=== PATIENT | female | born 1965 | race Caucasian/White ===

== ENCOUNTER 2016-08-19 10:16 | Day surgery (SDC) | payer OTHER ==
[2016-08-18 14:45] VITALS: BMI 27.9
[2016-08-19] MEDS ORDERED: BUPIVACAINE HCL/EPINEPHRINE/PF 30 ML VIAL IJ ONE (12:06)
[2016-08-19] MEDS ORDERED: PROPOFOL 20 ML ONE ×2 (13:37)
[2016-08-19] MEDS ORDERED: MIDAZOLAM HCL 2 MG/2 ML SINGLE DOSE VIAL ONE (14:01)
[2016-08-19] MEDS ORDERED: ceFAZolin SODIUM 1 GM VIAL ONE (14:26)
[2016-08-19] MEDS ORDERED: CLINDAMYCIN PHOSPHATE 600 MG/4 ML VIAL ONE (14:29)
[2016-08-19] MEDS ORDERED: KETOROLAC TROMETHAMINE 30 MG/1 ML VIAL ONE (14:31)
[2016-08-19] MEDS ORDERED: DEXAMETHASONE SOD PHOSPHATE 4 MG/1 ML VIAL ONE (14:31)
[2016-08-19] MEDS ORDERED: ONDANSETRON 4 MG/2 ML VIAL ONE ×2 (14:31→15:48)
[2016-08-19] MEDS ORDERED: BUPIVACAINE 0.25% /EPI 1:200,000 10 ML VIAL INF ONE (14:47)
--- NOTE | 2016-08-19 15:06 | OP ---
Operative Note - Note: Operative Date: 08/19/16 Pre-Operative Diagnosis: LEft knee medial/lateral meniscus tears Operation: LKA, chondroplasty and synovectomy Findings: Synovitis, lateral patella chondromalacia. NO evidence of MMT or LMT> Post-Operative Diagnosis: Other Anesthesia: Local Operative Report Dictated: Yes
--- NOTE | 2016-08-19 15:07 | DS ---
Physical Examination Vital Signs: Vital Signs Temperature 98.1 F 08/19/16 12:33 Pulse Rate 58 L 08/19/16 12:33 Respiratory Rate 20 08/19/16 12:33 Blood Pressure 108/67 08/19/16 12:33 O2 Sat by Pulse Oximetry (%) 99 08/19/16 12:35 Discharge Summary Reason For Visit: MEDIAL MENISCAL TEAR, LEFT KNEE Condition: Good - Instructions Diet, Activity, Other Instructions: Post Operative Instructions: Knee Arthroscopy Dr Handy Thomas 1. Pain following an arthroscopy is variable. Some patients will have more pain than others. You have been provided with a prescription for medication that contains a narcotic. You are not allowed to drive while on this medication. You should NOT take Tylenol (Acetaminophen) when taking the pain medication ( it will result in an overdose). Feel free to take medications such as Ibuprofen or Naprosyn in addition to the pain medicine if you do not have any problems with the NSAID class of medications. 2. You are allowed to remove the bandages and shower in 24 hours unless directed otherwise. You are not allowed to bathe or go swimming until the sutures are removed. Put band-aids on the sutures after your shower and do not put any creams or lotions over the incisions. 3. You are allowed to put all your weight on the leg and bend your knee, unless directed otherwise. 4. Apply ice to the knee for 15 min every hour or so. You may continue this for as many days as you like. 5. Please call the office to schedule a visit to have your sutures removed. 6. If for any reason you believe you may have an infection or are concerned, please feel free to call me. I can be reached through our office number 24 hours a day. 7. Please call our office with any questions; we will review the surgical findings during your post operative visit. Disposition: HOME - Home Medications Comprehensive Discharge Medication List: Ambulatory Orders Oxycodone HCl 30 mg PO QID 11/11/15 Albuterol 0.083% Nebulizer Kim [Ventolin 0.083%] 1 neb NEB Q4H PRN 08/19/16 Budesonide/Formeterol Fumarate [SYMBICORT 160/4.5mcg -] 1 inh PO BID 08/19/16
[2016-08-19] MEDS ORDERED: oxyCODONE HCL 5 MG TABLET PO PRN (16:21)
[2016-08-19] MEDS ORDERED: ONDANSETRON 4 MG/2 ML VIAL IVPUSH PRN (16:21)
[2016-08-19] MEDS ORDERED: LACTATED RINGERS SOLUTION 1,000 ML IV SCH (16:30)
[2016-08-19 17:43] VITALS: PULSE 62; TEMP 98
[2016-08-19 17:50] VITALS: BP 110/62
--- NOTE | 2016-08-23 14:33 | PATH ---
Surgical Pathology Report Patient Name: JODI [facility]. Rec. #: [id number] /Age/Gender: 1965 (Age: 51) / F Account: [id number] Location: [facility] Taken: 08/19/2016 Received: 08/19/2016 Reported: 08/23/2016 Physicians: Handy Thomas M.D. Specimen(s) Received LEFT KNEE SHAVINGS Clinical History Medial meniscal tear left knee Final Diagnosis LEFT KNEE, ARTHROSCOPIC SHAVINGS: SYNOVIUM WITH MILD CHRONIC INFLAMMATION, AND SCANT FIBROCARTILAGE WITH MYXOID DEGENERATIVE CHANGES. Electronically Signed Nabeel Montalvo M.D. Gross Description Received in formalin, labeled "left knee shavings," is a 2.5 x 2.5 x 0.3 cm. aggregate of brooks-yellow soft tissue fragments. A direct customer service representative portion is submitted in one cassette. /08/22/201608/22/2016
== END 2016-08-19 17:53 | disposition home or self-care (01) ==
LOC: FASU 10:16
PROVIDERS: ATTEND Orthopaedic Surgery
PROC: 0SBD4ZZ Excision of Left Knee Joint, Percutaneous Endoscopic Approach (ICD-10-PCS; principal; 2016-08-19 12:00)
DX: S83.012A Lateral subluxation of left patella, initial encounter (principal); M17.12 Unilateral primary osteoarthritis, left knee; M65.9 Synovitis and tenosynovitis, unspecified; X58.XXXA Exposure to other specified factors, initial encounter; Y93.9 Activity, unspecified; Y92.9 Unspecified place or not applicable
CPT/HCPCS: 84703; 88304-TC

== ENCOUNTER 2018-01-14 01:34 | Emergency (ER) | payer OTHER ==
[2018-01-14 01:57] VITALS: BP 126/75; PULSE 66; TEMP 97.6; BMI 27.4
[2018-01-14] MEDS ORDERED: SODIUM CHLORIDE 1,000 ML IV STA (02:24)
[2018-01-14] MEDS ORDERED: KETOROLAC TROMETHAMINE 30 MG/1 ML VIAL IVPUSH ONE (02:24)
[2018-01-14] MEDS ORDERED: METOCLOPRAMIDE HCL INJECTION 10 MG/2 ML VIAL IVPUSH ONE (02:24)
--- NOTE | 2018-01-14 02:28 | PDOC ---
History of Present Illness - General Chief Complaint: Pain Stated Complaint: PAIN Time Seen by Provider: 01/14/18 02:07 History Source: Patient Exam Limitations: Language Barrier (Sharyn Wooten) - History of Present Illness Initial Comments: 01/14/18 02:28 HISTORY OF PRESENT ILLNESS: 52-year-old woman past medical history of asthma, depression, unspecified thyroid disease (denies prescribed medications) who presents emergency Department with 3 days of headaches, myalgias and arthralgia. Patient is unable to describe her headache for repeat reports "my bones hurt." Patient denies any fevers, chills, sore throat, dizziness, weakness , chest pain, shortness of breath. No recent travel or sick contacts. PAST MEDICAL HISTORY: see hpi SURGICAL HISTORY: Denies ALLERGIES: PCN REVIEW OF SYSTEMS General/Constitutional: Denies fever or chills. Denies weakness, weight change. HEENT: Denies change in vision. Denies ear pain or discharge. Denies sore throat. Cardiovascular: Denies chest pain or shortness of breath. Respiratory: Denies cough, wheezing, or hemoptysis. Gastrointestinal: Denies nausea, vomiting, diarrhea or constipation. Denies rectal bleeding. Genitourinary: Denies dysuria, frequency, or change in urination. Musculoskeletal: Endorses joint and muscle pain. Denies neck or back pain. Skin and breasts: Denies rash or easy bruising. Neurologic: Endorses headache. Denies vertigo, loss of consciousness, or loss of sensation. Psychiatric: Denies depression or anxiety. Endocrine: Denies increased thirst. Denies abnormal weight change. Hematologic/Lymphatic: Denies anemia, easy bleeding, or history of blood clots. Allergic/Immunologic: Denies hives or skin allergy. Denies latex allergy. PHYSICAL EXAM General Appearance: Well-appearing, appropriately dressed. No apparent distress , no intoxication. HEENT: EOMI, PERRLA, normal voice, TMs normal. No conjunctival pallor. No photophobia, scleral icterus. Oropharynx mildly erythematous. No lesions or exudates present. Cobblestoning noted in the posterior oropharynx. Neck: Supple. Trachea midline. No tenderness, rigidity, carotid bruit, stridor , lymphadenopathy, or thyromegaly. Respiratory/Chest: Lungs CTAB. No shortness of breath, chest tenderness, respiratory distress, accessory muscle use. No crackles, rales, rhonchi, stridor , wheezing, dullness Cardiovascular: RRR. S1, S2. No JVD, murmur, bradycardia, tachycardia. Vascular Pulses: Dorsalis-Pedis (R): 2+, Dorsalis-Pedis (L): 2+ Gastrointestinal/Abdominal: Normal bowel sounds. Abdomen soft, non-distended. No tenderness or rebound tenderness. No organomegaly, pulsatile mass, guarding, hernia, hepatomegaly, splenomegaly. Lymphatic: No adenopathy, tenderness. Musculoskeletal/Extremities: Normal inspection. FROM of all extremities, normal capillary refill. Pelvis Stable. No CVA tenderness. No tenderness to extremities, pedal edema, swelling, erythema or deformity. Integumentary: Appropriate color, dry, warm. No cyanosis, erythema, jaundice or rash Neurologic: ramp jockey II-XII intact. Fully oriented, alert. Appropriate mood/affect. Motor strength 5/5. No appreciable EOM palsy, facial droop or sensory deficit. Past History - Past Medical History Allergies/Adverse Reactions: Allergies Allergy/AdvReac Type Severity Reaction Status Date / Time Penicillins Allergy Severe Itching Verified 01/14/18 01:36 iodine Allergy Intermediate RASH, Verified 01/14/18 01:36 ITCHING Home Medications: Ambulatory Orders Albuterol 0.083% Nebulizer Kim [Ventolin 0.083% Nebulizer Soln -] 1 neb NEB Q4H PRN 08/19/16 Budesonide/Formeterol Fumarate [SYMBICORT 160/4.5mcg -] 1 inh PO BID 08/19/16 Anemia: No Asthma: Yes (DX CHILD) Cancer: No Cardiac Disorders: No CVA: No COPD: No CHF: No Dementia: No Diabetes: No GI Disorders: No Disorders: No HTN: Yes (DX 2010-CURRENTLY NO MEDS) Hypercholesterolemia: No Liver Disease: No Psychiatric Problems: Yes (ANXIETY) Seizures: No Thyroid Disease: No - Surgical History Abdominal Surgery: Yes (C- SECTION) Appendectomy: Yes (OPEN) Cardiac Surgery: No Cholecystectomy: No Lung Surgery: No Neurologic Surgery: No Orthopedic Surgery: Yes (LEFT SHOULDER) - Immunization History Immunization Up to Date: Yes - Suicide/Smoking/Psychosocial Hx Smoking History: Never smoked Have you smoked in the past 12 months: No Number of Cigarettes Smoked Daily: 0 Information on smoking cessation initiated: No Hx Alcohol Use: No Drug/Substance Use Hx: No Substance Use Type: None Hx Substance Use Treatment: No *Physical Exam - Vital Signs Last Vital Signs Temp Pulse Resp BP Pulse Ox 97.6 F 66 20 126/75 97 01/14/18 01:36 01/14/18 01:36 01/14/18 01:36 01/14/18 01:36 01/14/18 01:36 ED Treatment Course - LABORATORY CBC & Chemistry Diagram: 01/14/18 02:45 01/14/18 02:45 Medical Decision Making - Medical Decision Making 01/14/18 02:32 A/P: 52-year-old woman with headaches, myalgias, arthralgias for 3 days Oropharynx mildly erythematous TMs within normal limits bilaterally No cervical lymphadenopathy present Lungs clear to auscultation bilaterally Abdomen soft nontender nondistended Diffuse lower back pain-worsens with flexion of left hip DDx: Viral illness, metabolic abnormalities, urinary tract infection, meningitis - less likely given normal neuro exam, afebrile -Gus Orr 01/14/18 04:11 Laboratory testing is unremarkable. Most likely viral illnesses as symptoms have all resolved with pain medication and fluids. Patient is requesting to be discharged home. I will discharge the patient home to follow-up with her primary doctor. *DC/Admit/Observation/Transfer Diagnosis at time of Disposition: Viral illness - Discharge Dispostion Disposition: HOME Condition at time of disposition: Stable Decision to Admit order: No - Referrals - Patient Instructions Additional Instructions: Rest, drink lots of fluids: Teas, water, soups, Pedialyte Lots of handwashing and good hygiene Continue [id number] medications for symptomatic relief Tylenol or Motrin for fever and pain Followup with private physician in one to 2 days as needed Return to emergency department for worsened symptoms, fevers, dehydration [place]canse, tome muchos lquidos: Ts, agua, sopas, Pedialyte Mucho lavado de yusuf y buena higiene. Continuar con los medicamentos de venta andrea para el alivio sintomtico. Tylenol o Motrin para la fiebre y el dolor. Seguimiento con mdico privado en 1 a 2 mendiola segn sea necesario. Volver al servicio de urgencias para los sntomas empeorados, fiebres, deshidratacin. - Post Discharge Activity
[2018-01-14] MEDS ORDERED: METOCLOPRAMIDE HCL INJECTION 10 MG/2 ML VIAL ONE (02:31)
[2018-01-14] MEDS ORDERED: KETOROLAC TROMETHAMINE 30 MG/1 ML VIAL ONE (02:31)
[2018-01-14 02:54] LABS: BASO % 1.2 % (0-2.0); EOS % 1.1 % (0-4.5); HEMATOCRIT 41.5 % (32.4-45.2); HEMOGLOBIN 13.9 GM/dL (10.7-15.3); LYMPH % 34.3 % (8-40); MCH 30.1 pg (25.7-33.7); MCHC 33.4 g/dl (32.0-36.0); MEAN CELL VOLUME 89.9 fl (80-96); MEAN PLT VOLUME 8.9 fl (7.5-11.1); MONO % 8.8 % (3.8-10.2); NEUT % 54.6 % (42.8-82.8); PLATELET COUNT 237 K/MM3 (134-434); RBC 4.62 M/mm3 (3.60-5.2); RDW 14.1 % (11.6-15.6); WHITE BLOOD COUNT 7.4 K/mm3 (4.0-10.0)
[2018-01-14 03:14] LABS: ALBUMIN 3.5 g/dl (3.4-5.0); ALK PHOS 106 U/L (45-117); ANION GAP 6 MMOL/L (8-16); BILIRUBIN,TOTAL 0.2 mg/dL (0.2-1); BLOOD UREA NITROGEN 11 mg/dL (7-18); CALCIUM 8.9 mg/dL (8.5-10.1); CHLORIDE 107 mmol/L (98-107); CO2 29 mmol/L (21-32); CREATININE 0.6 mg/dL (0.55-1.3); GLUCOSE,RANDOM 98 mg/dL (74-106); LIPASE 159 U/L (73-393); POTASSIUM 3.7 mmol/L (3.5-5.1); SGOT/AST 20 U/L (15-37); SGPT/ALT 33 U/L (13-61); SODIUM 142 mmol/L (136-145)
[2018-01-14 03:20] LABS: URINE APPEARANCE CLEAR; URINE BILIRUBIN NEGATIVE (<2.0 mg/dL); URINE COLOR STRAW; URINE GLUCOSE (UA) NEGATIVE (NEGATIVE); URINE KETONE NEGATIVE (NEGATIVE); URINE LEUK ESTERASE NEGATIVE (NEGATIVE); URINE NITRITE NEGATIVE (NEGATIVE); URINE PROTEIN NEGATIVE (NEGATIVE); URINE UROBILINOGEN NEGATIVE mg/dL (0.2-1.0)
--- NOTE | 2018-01-15 11:02 | EKG ---
Test Reason : Blood Pressure : / mmHG Vent. Rate : 066 BPM Atrial Rate : 066 BPM P-R Int : 156 ms QRS Dur : 090 ms QT Int : 404 ms P-R-T Axes : 049 031 032 degrees QTc Int : 423 ms NORMAL SINUS RHYTHM NORMAL ECG WHEN COMPARED WITH ECG OF 20-AUG-2014 18:03, NO SIGNIFICANT CHANGE WAS FOUND Confirmed by ERIC BATRES MD ([id number]) on 01/15/2018 11:02:39 AM Referred By: Confirmed By:ERIC BATRES MD
== END 2018-01-14 04:28 | disposition home or self-care (01) ==
LOC: JER 01:34
PROC: 3E033GC Introduction of Other Therapeutic Substance into Peripheral Vein, Percutaneous Approach (ICD-10-PCS; principal; 2018-01-14)
PROC: 3E033GC Introduction of Other Therapeutic Substance into Peripheral Vein, Percutaneous Approach (ICD-10-PCS; 2018-01-14)
PROC: 3E0333Z Introduction of Anti-inflammatory into Peripheral Vein, Percutaneous Approach (ICD-10-PCS; 2018-01-14)
DX: B34.9 Viral infection, unspecified (principal); F41.8 Other specified anxiety disorders; Z87.09 Personal history of other diseases of the respiratory system
CPT/HCPCS: 36415; 80053; 81003; 83690; 85025; 87086; 93005; 93010; 96374; 96375; 99282-25; J7030

== ENCOUNTER 2018-06-18 20:39 | Emergency (ER) | payer OTHER ==
[2018-06-18 21:03] VITALS: BP 136/70; TEMP 98; BMI 27.4
[2018-06-18] MEDS ORDERED: KETOROLAC TROMETHAMINE 30 MG/1 ML VIAL IM ONE (21:05)
[2018-06-18] MEDS ORDERED: diazePAM 5 MG TABLET PO ONE (21:05)
--- NOTE | 2018-06-18 21:05 | PDOC ---
Rapid Medical Evaluation Chief Complaint: Back Pain Time Seen by Provider: 06/18/18 21:02 Medical Evaluation: Allergies Allergy/AdvReac Type Severity Reaction Status Date / Time Penicillins Allergy Severe Itching Verified 01/14/18 01:36 iodine Allergy Intermediate RASH, Verified 01/14/18 01:36 ITCHING 06/18/18 21:03 I have performed a brief in-person evaluation of this patient. The patient presents with a chief complaint of: back pain x 1 week. Patient has exacerbation of back pain that is radiating down to leg. ibuprofen calms the pain but it persist Pertinent physical exam findings: appears in pain +tenderness in lower back pain even and unlabored breathing ambulates with a cane I have ordered the following: urinalysis, analgesia The patient will proceed to the ED for further evaluation. Discharge Disposition - Diagnosis Back pain - Referrals - Patient Instructions - Post Discharge Activity
[2018-06-18 21:30] LABS: URINE APPEARANCE CLEAR; URINE BILIRUBIN NEGATIVE (<2.0 mg/dL); URINE COLOR YELLOW; URINE GLUCOSE (UA) NEGATIVE (NEGATIVE); URINE KETONE TRACE (NEGATIVE); URINE LEUK ESTERASE TRACE (NEGATIVE); URINE NITRITE NEGATIVE (NEGATIVE); URINE PROTEIN 1+ (NEGATIVE); URINE UROBILINOGEN 4.0 E.U/dl mg/dL (0.2-1.0)
[2018-06-18 21:34] LABS: EPI CELLS RARE /HPF (FEW); URINE MUCUS RARE
[2018-06-18] MEDS ORDERED: KETOROLAC TROMETHAMINE 60 MG/2 ML VIAL IM ONE (22:25)
[2018-06-18] MEDS ORDERED: KETOROLAC TROMETHAMINE 60 MG/2 ML VIAL ONE (22:26)
[2018-06-18] MEDS ORDERED: diazePAM 5 MG TABLET ONE (22:27)
--- NOTE | 2018-06-18 22:49 | PDOC ---
History of Present Illness - General Chief Complaint: Back Pain Stated Complaint: BACK PAIN Time Seen by Provider: 06/18/18 21:02 - History of Present Illness Initial Comments: 06/18/18 22:45 52-year-old female with lower back pain and posterior lateral left leg radicular symptoms 2 days without loss of bowel or bladder function or saddle paresthesias. Past History - Past Medical History Allergies/Adverse Reactions: Allergies Allergy/AdvReac Type Severity Reaction Status Date / Time Penicillins Allergy Severe Itching Verified 06/18/18 21:03 iodine Allergy Intermediate RASH, Verified 06/18/18 21:03 ITCHING Home Medications: Ambulatory Orders Albuterol 0.083% Nebulizer Kim [Ventolin 0.083% Nebulizer Soln -] 1 neb NEB Q4H PRN 08/19/16 Budesonide/Formeterol Fumarate [SYMBICORT 160/4.5mcg -] 1 inh PO BID 08/19/16 Anemia: No Asthma: Yes (DX CHILD) Cancer: No Cardiac Disorders: No CVA: No COPD: No CHF: No Dementia: No Diabetes: No GI Disorders: No Disorders: No HTN: Yes (DX 2010-CURRENTLY NO MEDS) Hypercholesterolemia: No Liver Disease: No Psychiatric Problems: Yes (ANXIETY) Seizures: No Thyroid Disease: No - Surgical History Abdominal Surgery: Yes (C- SECTION) Appendectomy: Yes (OPEN) Cardiac Surgery: No Cholecystectomy: No Lung Surgery: No Neurologic Surgery: No Orthopedic Surgery: Yes (LEFT SHOULDER) - Immunization History Immunization Up to Date: Yes - Suicide/Smoking/Psychosocial Hx Smoking History: Never smoked Have you smoked in the past 12 months: No Number of Cigarettes Smoked Daily: 0 Information on smoking cessation initiated: No Hx Alcohol Use: No Drug/Substance Use Hx: No Substance Use Type: None Hx Substance Use Treatment: No Review of Systems - Review of Systems Musculoskeletal: Yes: Back Pain Neurological: Yes: See HPI *Physical Exam - Vital Signs Last Vital Signs Temp Pulse Resp BP Pulse Ox 98.0 F 136/70 100 06/18/18 21:01 06/18/18 21:01 06/18/18 21:01 - Physical Exam Comments: 06/18/18 22:45 Lumbar spine skin color and temperature are normal range of motion is limited. There is no midline tenderness. Moderate right left paralumbar musculature spasm and tenderness greater on the left than the right 5 out of 5 strength in bilateral lower extremities without gross sensorimotor deficits neurovascularly intact. Moderate Sedation - Procedure Monitoring Vital Signs: Procedure Monitoring Vital Signs Temperature 98.0 F 06/18/18 21:01 Pulse Rate Respiratory Rate Blood Pressure 136/70 06/18/18 21:01 O2 Sat by Pulse Oximetry (%) 100 06/18/18 21:01 ED Treatment Course - ADDITIONAL ORDERS Additional order review: Laboratory Results 06/18/18 21:12 Urine Color Yellow Urine Appearance Clear Urine pH 7.0 Ur Specific [place] 1.032 Urine Protein 1+ H Urine Glucose (UA) Negative Urine Ketones Trace H Urine Blood Negative Urine Nitrite Negative Urine Bilirubin Negative Urine Urobilinogen 4.0 e.u/dl H Ur Leukocyte Esterase Trace Urine WBC (Auto) 2 Urine RBC (Auto) 8 Ur Epithelial Cells Rare Urine Mucus Rare - Medications Given in the ED: ED Medications Discontinued Medications Generic Name Dose Route Start Last Admin Trade Name Freq PRN Reason Stop Dose Admin Diazepam 10 mg 06/18/18 21:05 06/18/18 22:32 Valium - PO 06/18/18 21:06 10 mg ONCE ONE Administration Ketorolac Tromethamine 30 mg 06/18/18 21:05 06/18/18 22:32 Toradol Injection - IM 06/18/18 21:06 Not Given ONCE ONE Ketorolac Tromethamine 60 mg 06/18/18 22:25 06/18/18 22:32 Toradol Injection - IM 06/18/18 22:26 60 mg ONCE ONE Administration Medical Decision Making - Medical Decision Making 06/18/18 22:46 Radicular symptoms improved with Toradol will have patient follow-up with spine surgery Medrol Dosepak and Flexeril symptoms pharmacy. 06/18/18 22:48 Used google translate to explain issues to patient and answer questions *DC/Admit/Observation/Transfer Diagnosis at time of Disposition: Back pain, Lumbar radiculopathy - Discharge Dispostion Disposition: HOME Condition at time of disposition: Improved Decision to Admit order: No - Referrals Referrals: Jaswant Esquivel MD [Primary Care Provider] - Abhi Mello MD [Staff Physician] - - Patient Instructions Printed Discharge Instructions: Lumbar Radiculopathy, DI for Lumbar Radiculopathy Additional Instructions: Regrese a la jeanine de emergencias si los sntomas empeoran. Por favor, tome el paquete de esteroides sharon se indica en las instrucciones en la parte posterior del paquete. No hay otros antiinflamatorios sharon Advil Motrin Aleve o ibuprofeno. l puede camila Tylenol segn las indicaciones si necesita algo ms para el dolor. El relajante muscular prescrito menos lo samantha dormir un comprimido antes de acostarse. Seguimiento con ciruga de columna vertebral en 1 -2 mendiola para marquis evaluacin adicional y opciones de tratamiento. return to the emergency room should symptoms worsen. Please take the steroid pack as directed the instructions on the back of the pack. No other anti- inflammatories such as Advil Motrin Aleve or ibuprofen. He may take Tylenol as directed if you need something additional for pain. The muscle relaxer prescribed fewer will make you sleepy its one tablet before bedtime. Follow-up with spine surgery in 1-2 days for further evaluation and treatment options. - Post Discharge Activity
== END 2018-06-18 22:54 | disposition home or self-care (01) ==
LOC: JERFT 20:39
PROC: 3E0233Z Introduction of Anti-inflammatory into Muscle, Percutaneous Approach (ICD-10-PCS; principal; 2018-06-18)
DX: M54.16 Radiculopathy, lumbar region (principal)
CPT/HCPCS: 81003; 81015; 96372; 99281-25

== ENCOUNTER 2021-01-01 12:58 | Emergency (ER) | payer OTHER ==
[2021-01-01 13:16] VITALS: BMI 30.2
[2021-01-01] MEDS ORDERED: DEXAMETHASONE SOD PHOSPHATE 10 MG/1 ML VIAL IVPUSH ONE (13:50)
[2021-01-01] MEDS ORDERED: CLINDAMYCIN 600MG PREMIX IVPB 600 MG/50 ML BAG IVPB ONE ×2 (13:51→15:08)
[2021-01-01] MEDS ORDERED: DEXAMETHASONE SOD PHOSPHATE 10 MG/1 ML VIAL ONE (13:53)
[2021-01-01 14:20] LABS: BASO % 0.3 % (0-2.0); EOS % 0.1 % (0-4.5); HEMATOCRIT 42.2 % (32.4-45.2); HEMOGLOBIN 14.2 GM/dL (10.7-15.3); LYMPH % 21.4 % (8-40); MCH 29.8 pg (25.7-33.7); MCHC 33.6 g/dl (32.0-36.0); MEAN CELL VOLUME 88.8 fl (80-96); MEAN PLT VOLUME 8.9 fl (7.5-11.1); MONO % 8.7 % (3.8-10.2); NEUT % 69.5 % (42.8-82.8); PLATELET COUNT 285 10^3/uL (134-434); RBC 4.75 M/mm3 (3.60-5.2); RDW 14.3 % (11.6-15.6); WHITE BLOOD COUNT 8.9 K/mm3 (4.0-10.0)
[2021-01-01] MEDS ORDERED: ACETAMINOPHEN 1000 MG/100 ML VIAL (NON FORMULARY) IVPB ONE (14:40)
[2021-01-01 14:44] LABS: CALCIUM 8.8 mg/dL (8.5-10.1)
[2021-01-01 14:45] LABS: ALBUMIN 3.6 g/dl (3.4-5.0)
[2021-01-01 14:48] LABS: CREATININE 0.6 mg/dL (0.55-1.3)
[2021-01-01 14:49] LABS: BILIRUBIN,TOTAL 0.2 mg/dL (0.2-1); TOT PROT 7.3 g/dl (6.4-8.2)
[2021-01-01 16:52] VITALS: BP 126/72; PULSE 58; TEMP 98.1
== END 2021-01-01 18:23 ==
LOC: JER 12:58
PROC: 3E0333Z Introduction of Anti-inflammatory into Peripheral Vein, Percutaneous Approach (ICD-10-PCS; principal; 2021-01-01)
PROC: 3E03329 Introduction of Other Anti-infective into Peripheral Vein, Percutaneous Approach (ICD-10-PCS; 2021-01-01)
PROC: 3E033GC Introduction of Other Therapeutic Substance into Peripheral Vein, Percutaneous Approach (ICD-10-PCS; 2021-01-01)
PROC: 3E03329 Introduction of Other Anti-infective into Peripheral Vein, Percutaneous Approach (ICD-10-PCS; 2021-01-01)
DX: J02.9 Acute pharyngitis, unspecified (principal)
CPT/HCPCS: 36415; 70491-TC; 80053; 84443; 85025; 87804; 87880; 99285-25; C9803; J0131; J1100; U0003; U0005

== ENCOUNTER 2021-02-24 16:05 | Emergency (ER) | payer OTHER ==
[2021-02-24 16:32] VITALS: BP 150/84; PULSE 87; TEMP 98.1; BMI 32.1
[2021-02-24] MEDS ORDERED: ALBUTEROL SO4 2.5/IPRATROPIUM 0.5 INH SOL 3 ML VIAL.NEB. NEB ONE ×2 (17:24→18:12)
[2021-02-24] MEDS ORDERED: DEXAMETHASONE SOD PHOSPHATE 10 MG/1 ML VIAL IM ONE (17:24)
[2021-02-24] MEDS ORDERED: KETOROLAC TROMETHAMINE 30 MG/1 ML VIAL IM ONE (17:25)
[2021-02-24] MEDS ORDERED: ALBUTEROL SO4 0.083% IH SOL 2.5 MG/3 ML VIAL.NEB. NEB ONE ×2 (17:25→18:12)
[2021-02-24] MEDS ORDERED: DEXAMETHASONE SOD PHOSPHATE 10 MG/1 ML VIAL ONE (18:12)
[2021-02-24] MEDS ORDERED: KETOROLAC TROMETHAMINE 30 MG/1 ML VIAL ONE (18:12)
== END 2021-02-24 20:08 | disposition home or self-care (01) ==
LOC: JER 16:05
PROC: 3E0F7GC Introduction of Other Therapeutic Substance into Respiratory Tract, Via Natural or Artificial Opening (ICD-10-PCS; principal; 2021-02-24)
PROC: 3E023GC Introduction of Other Therapeutic Substance into Muscle, Percutaneous Approach (ICD-10-PCS; 2021-02-24)
PROC: 3E0233Z Introduction of Anti-inflammatory into Muscle, Percutaneous Approach (ICD-10-PCS; 2021-02-24)
DX: J45.909 Unspecified asthma, uncomplicated (principal)
CPT/HCPCS: 71045-TC-FY; 93005; 93010; 99285-25; C9803; J1100; U0003; U0005

== ENCOUNTER 2021-04-24 14:50 | Emergency (ER) | payer OTHER ==
[2021-04-24 15:02] VITALS: BP 115/72; PULSE 71; TEMP 97.7; BMI 30.2
[2021-04-25 16:11] LABS: SARS-CoV-2 NAA Detected (Not Detected)
== END 2021-04-24 17:52 | disposition home or self-care (01) ==
LOC: JER 14:50
DX: U07.1 COVID-19 (principal)
CPT/HCPCS: 71046-TC-FY; 87804; 99284-25; C9803; U0003; U0005

== ENCOUNTER 2021-06-16 17:09 | Emergency (ER) | payer OTHER ==
[2021-06-16 17:47] VITALS: BP 119/85; PULSE 75; BMI 31.1
[2021-06-16] MEDS ORDERED: ONDANSETRON 4 MG/2 ML VIAL IVPUSH ONE (17:55)
[2021-06-16] MEDS ORDERED: ACETAMINOPHEN 1000 MG/100 ML BAG IVPB ONE (17:55)
[2021-06-16] MEDS ORDERED: SODIUM CHLORIDE 1,000 ML IV STA (17:56)
[2021-06-16] MEDS ORDERED: ACETAMINOPHEN INJECTION 100 ML IVPB ONE (18:07)
[2021-06-16] MEDS ORDERED: ONDANSETRON 4 MG/2 ML VIAL ONE (18:07)
[2021-06-16 19:55] LABS: BASO % 0.5 % (0-2.0); LYMPH % 26.3 % (8-40); MCH 29.7 pg (25.7-33.7); MCHC 33.3 g/dl (32.0-36.0); MEAN CELL VOLUME 89.2 fl (80-96); MEAN PLT VOLUME 9.8 fl (7.5-11.1); MONO % 10.3 % (3.8-10.2); NEUT % 61.9 % (42.8-82.8); PLATELET COUNT 222 10^3/uL (134-434); RBC 4.71 M/mm3 (3.60-5.2); RDW 13.7 % (11.6-15.6); WHITE BLOOD COUNT 7.3 K/mm3 (4.0-10.0)
[2021-06-16 20:11] LABS: ALBUMIN 3.7 g/dl (3.4-5.0)
[2021-06-16 20:12] LABS: BLOOD UREA NITROGEN 9.4 mg/dL (7-18)
[2021-06-16 20:15] LABS: CREATININE 0.8 mg/dL (0.55-1.3)
[2021-06-16 20:16] LABS: BILIRUBIN,TOTAL 0.7 mg/dL (0.2-1); TOT PROT 6.9 g/dl (6.4-8.2)
[2021-06-16 21:04] LABS: EPI CELLS >36 /uL (0-25.1); HYALINE CASTS 2 /uL (0-3.1); URINE APPEARANCE CLOUDY; URINE BACTERIA 1470 /uL (0-1359); URINE BILIRUBIN NEGATIVE (NEGATIVE); URINE COLOR YELLOW; URINE GLUCOSE (UA) NEGATIVE (NEGATIVE); URINE KETONE NEGATIVE (NEGATIVE); URINE LEUK ESTERASE 2+ (NEGATIVE); URINE NITRITE NEGATIVE (NEGATIVE); URINE PROTEIN NEGATIVE (NEGATIVE); URINE RBC 13 /uL (0-23.9); URINE UROBILINOGEN 0.2 mg/dL (0.2-1.0); URINE WBC 248 /uL (0-25.8)
[2021-06-16] MEDS ORDERED: FAMOTIDINE 20 MG/50 ML IVPB 20 MG/50 ML MG IVPB ONE ×2 (21:49→21:53)
== END 2021-06-17 01:29 | disposition home or self-care (01) ==
LOC: JER 17:09
PROC: 3E033GC Introduction of Other Therapeutic Substance into Peripheral Vein, Percutaneous Approach (ICD-10-PCS; principal; 2021-06-16)
DX: N39.0 Urinary tract infection, site not specified (principal)
CPT/HCPCS: 36415; 71045-TC-FY; 74177-TC; 76705-TC; 76830-TC; 80053; 81003; 83690; 84484; 85025; 93005; 93010; 99285-25

== ENCOUNTER 2021-09-22 17:33 | Inpatient (IN) | payer OTHER ==
[2021-09-22 17:42] VITALS: BMI 31.1
[2021-09-22] MEDS ORDERED: SODIUM CHLORIDE 1,000 ML IV SCH (18:00)
[2021-09-22 18:29] LABS: BASO % 0.6 % (0-2.0); EOS % 0.9 % (0-4.5); HEMATOCRIT 40.6 % (32.4-45.2); HEMOGLOBIN 13.3 GM/dL (10.7-15.3); LYMPH % 35.3 % (8-40); MCH 29.4 pg (25.7-33.7); MCHC 32.7 g/dl (32.0-36.0); MEAN CELL VOLUME 90.1 fl (80-96); MEAN PLT VOLUME 8.1 fl (7.5-11.1); MONO % 7.7 % (3.8-10.2); NEUT % 55.5 % (42.8-82.8); PLATELET COUNT 225 10^3/uL (134-434); RBC 4.51 M/mm3 (3.60-5.2); RDW 14.5 % (11.6-15.6); WHITE BLOOD COUNT 7.2 K/mm3 (4.0-10.0)
[2021-09-22 18:37] LABS: INR 0.97 (0.83-1.09); PROTHROMBIN TIME (PATIENT) 11.2 SEC (9.7-13.0)
[2021-09-22 18:40] LABS: ACTIVATED PTT 31.1 SECONDS (25.2-36.5)
[2021-09-22 18:54] LABS: CALCIUM 8.9 mg/dL (8.5-10.1)
[2021-09-22 18:55] LABS: ALBUMIN 3.6 g/dl (3.4-5.0)
[2021-09-22 18:58] LABS: CREATININE 0.6 mg/dL (0.55-1.3)
[2021-09-22] MEDS ORDERED: methylPREDNISolone NA SUCC 125 MG/2 ML VIAL IVPB ONE (18:58)
[2021-09-22 19:00] LABS: TOT PROT 6.8 g/dl (6.4-8.2)
[2021-09-22 19:01] LABS: BILIRUBIN,TOTAL 0.4 mg/dL (0.2-1)
[2021-09-22] MEDS ORDERED: methylPREDNISolone NA SUCC 125 MG/2 ML VIAL ONE (19:18)
[2021-09-22 19:42] LABS: URINE APPEARANCE CLEAR; URINE BILIRUBIN NEGATIVE (NEGATIVE); URINE COLOR YELLOW; URINE GLUCOSE (UA) NEGATIVE (NEGATIVE); URINE KETONE NEGATIVE (NEGATIVE); URINE LEUK ESTERASE NEGATIVE (NEGATIVE); URINE NITRITE NEGATIVE (NEGATIVE); URINE PROTEIN NEGATIVE (NEGATIVE); URINE UROBILINOGEN 0.2 mg/dL (0.2-1.0)
[2021-09-22] MEDS ORDERED: LORazepam 2 MG/ML SDV VIAL IVPUSH ONE ×2 (19:44→19:58)
[2021-09-23] MEDS ORDERED: ALBUTEROL SO4 0.083% IH SOL 2.5 MG/3 ML VIAL.NEB. NEB PRN (03:15)
[2021-09-23] MEDS: SODIUM CHLORIDE 1,000 ML IV SCH (03:50)
[2021-09-23] MEDS ORDERED: ACETAMINOPHEN 1000 MG/100 ML BAG IVPB ONE (03:50)
[2021-09-23 08:21] LABS: URINE AMPHETAMINES NEGATIVE (NEGATIVE); URINE BARBITURATES NEGATIVE (NEGATIVE)
[2021-09-23 08:22] LABS: COCAINE, UR NEGATIVE (NEGATIVE); METHADONE, UR NEGATIVE (NEGATIVE); PHENCYCLIDINE,URINE NEGATIVE (NEGATIVE); URINE BENZODIAZEPINES NEGATIVE (NEGATIVE)
[2021-09-23 08:25] LABS: OPIATES, URI NEGATIVE (NEGATIVE)
[2021-09-23] MEDS: ENOXAPARIN NA (PORCINE) 40 MG/0.4 ML DISP.SYRIN SQ SCH (09:50)
[2021-09-23] MEDS: CYCLOBENZAPRINE HCL 10 MG TABLET (FP) PO SCH ×2 (11:04→15:28)
[2021-09-23] MEDS: FLUoxetine HCL 20 MG CAPSULE PO SCH ×2 (11:05→15:28)
[2021-09-23] MEDS: PANTOPRAZOLE 40 MG TABLET PO SCH ×2 (11:05→15:28)
[2021-09-23] MEDS: OLANZapine 5 MG TABLET PO SCH ×2 (11:05→15:28)
[2021-09-23 11:07] LABS: BASO % 0.2 % (0-2.0); HEMOGLOBIN 13.9 GM/dL (10.7-15.3); LYMPH % 15.7 % (8-40); MCH 30.4 pg (25.7-33.7); MCHC 33.8 g/dl (32.0-36.0); MONO % 1.8 % (3.8-10.2); NEUT % 82.3 % (42.8-82.8); PLATELET COUNT 239 10^3/uL (134-434); RBC 4.56 M/mm3 (3.60-5.2); RDW 14.4 % (11.6-15.6); WHITE BLOOD COUNT 6.9 K/mm3 (4.0-10.0)
[2021-09-23] MEDS: BUDESONIDE/FORMETEROL FUMARATE 160/4.5 mcg INHALER IH SCH ×2 (11:22→21:44)
[2021-09-23 11:25] LABS: ALBUMIN 3.3 g/dl (3.4-5.0); BLOOD UREA NITROGEN 6.3 mg/dL (7-18); CALCIUM 9.4 mg/dL (8.5-10.1); MAGNESIUM 2.4 mg/dL (1.8-2.4)
[2021-09-23 11:28] LABS: CREATININE 0.5 mg/dL (0.55-1.3); PHOSPHOROUS 3.7 mg/dL (2.5-4.9)
[2021-09-23 11:30] LABS: BILIRUBIN,TOTAL 0.2 mg/dL (0.2-1); TOT PROT 6.6 g/dl (6.4-8.2)
[2021-09-23] MEDS: OLANZapine 2.5 MG TABLET PO SCH (21:40)
[2021-09-23] MEDS: MONTELUKAST NA 10 MG TABLET PO SCH (21:40)
[2021-09-23] MEDS: PRAMIPEXOLE DIHYDROCHLORIDE 0.25 MG TABLET PO SCH (21:40)
[2021-09-23] MEDS: TOPIRAMATE 25 MG TABLET PO SCH (21:46)
[2021-09-24] MEDS: SODIUM CHLORIDE 1,000 ML IV SCH ×2 (06:49→11:59)
[2021-09-24 07:10] LABS: BASO % 0.4 % (0-2.0); EOS % 0.8 % (0-4.5); HEMATOCRIT 38.4 % (32.4-45.2); HEMOGLOBIN 12.9 GM/dL (10.7-15.3); LYMPH % 41.7 % (8-40); MCH 30.3 pg (25.7-33.7); MCHC 33.6 g/dl (32.0-36.0); MEAN CELL VOLUME 90.2 fl (80-96); MEAN PLT VOLUME 8.7 fl (7.5-11.1); MONO % 5.8 % (3.8-10.2); NEUT % 51.3 % (42.8-82.8); PLATELET COUNT 236 10^3/uL (134-434); RBC 4.25 M/mm3 (3.60-5.2); RDW 14.3 % (11.6-15.6); WHITE BLOOD COUNT 7.4 K/mm3 (4.0-10.0)
[2021-09-24 07:41] LABS: CALCIUM 8.6 mg/dL (8.5-10.1)
[2021-09-24 07:42] LABS: BLOOD UREA NITROGEN 9.6 mg/dL (7-18)
[2021-09-24 07:45] LABS: CREATININE 0.6 mg/dL (0.55-1.3)
[2021-09-24] MEDS: BUDESONIDE/FORMETEROL FUMARATE 160/4.5 mcg INHALER IH SCH ×2 (09:38→21:30)
[2021-09-24] MEDS: ENOXAPARIN NA (PORCINE) 40 MG/0.4 ML DISP.SYRIN SQ SCH (09:38)
[2021-09-24] MEDS: TOPIRAMATE 25 MG TABLET PO SCH ×2 (09:38→21:30)
[2021-09-24] MEDS: PANTOPRAZOLE 40 MG TABLET PO SCH (09:38)
[2021-09-24] MEDS: FLUoxetine HCL 10 MG CAPSULE PO SCH (09:38)
[2021-09-24] MEDS: PRAMIPEXOLE DIHYDROCHLORIDE 0.25 MG TABLET PO SCH ×2 (09:38→21:31)
[2021-09-24] MEDS: OLANZapine 2.5 MG TABLET PO SCH (21:29)
[2021-09-24] MEDS: MONTELUKAST NA 10 MG TABLET PO SCH (21:32)
[2021-09-25 08:50] LABS: BASO % 0.5 % (0-2.0); EOS % 1.6 % (0-4.5); HEMATOCRIT 40.9 % (32.4-45.2); HEMOGLOBIN 13.7 GM/dL (10.7-15.3); LYMPH % 37.6 % (8-40); MCH 30.2 pg (25.7-33.7); MCHC 33.4 g/dl (32.0-36.0); MEAN CELL VOLUME 90.5 fl (80-96); MEAN PLT VOLUME 9.2 fl (7.5-11.1); MONO % 7.1 % (3.8-10.2); NEUT % 53.2 % (42.8-82.8); PLATELET COUNT 264 10^3/uL (134-434); RBC 4.52 M/mm3 (3.60-5.2); RDW 14.3 % (11.6-15.6); WHITE BLOOD COUNT 6.9 K/mm3 (4.0-10.0)
[2021-09-25 09:09] LABS: CALCIUM 9.1 mg/dL (8.5-10.1)
[2021-09-25 09:10] LABS: BLOOD UREA NITROGEN 10.7 mg/dL (7-18)
[2021-09-25] MEDS: SODIUM CHLORIDE 1,000 ML IV SCH (09:10)
[2021-09-25] MEDS: BUDESONIDE/FORMETEROL FUMARATE 160/4.5 mcg INHALER IH SCH ×2 (09:12→21:46)
[2021-09-25] MEDS: ENOXAPARIN NA (PORCINE) 40 MG/0.4 ML DISP.SYRIN SQ SCH (09:12)
[2021-09-25] MEDS: PANTOPRAZOLE 40 MG TABLET PO SCH (09:12)
[2021-09-25] MEDS: FLUoxetine HCL 10 MG CAPSULE PO SCH (09:12)
[2021-09-25] MEDS: PRAMIPEXOLE DIHYDROCHLORIDE 0.25 MG TABLET PO SCH ×2 (09:12→21:45)
[2021-09-25] MEDS: TOPIRAMATE 25 MG TABLET PO SCH ×2 (09:12→21:45)
[2021-09-25 09:13] LABS: CREATININE 0.6 mg/dL (0.55-1.3)
[2021-09-25] MEDS: ACETAMINOPHEN 1000 MG/100 ML BAG IVPB PRN (13:29)
[2021-09-25] MEDS: OLANZapine 2.5 MG TABLET PO SCH (21:45)
[2021-09-25] MEDS: MONTELUKAST NA 10 MG TABLET PO SCH (21:45)
[2021-09-26 07:39] LABS: BASO % 0.4 % (0-2.0); EOS % 1.5 % (0-4.5); HEMATOCRIT 41.2 % (32.4-45.2); HEMOGLOBIN 13.7 GM/dL (10.7-15.3); LYMPH % 38.9 % (8-40); MCH 29.8 pg (25.7-33.7); MCHC 33.2 g/dl (32.0-36.0); MEAN CELL VOLUME 89.7 fl (80-96); MONO % 7.5 % (3.8-10.2); NEUT % 51.7 % (42.8-82.8); PLATELET COUNT 277 10^3/uL (134-434); RDW 14.4 % (11.6-15.6); WHITE BLOOD COUNT 7.1 K/mm3 (4.0-10.0)
[2021-09-26 07:59] LABS: ALBUMIN 2.9 g/dl (3.4-5.0); BLOOD UREA NITROGEN 10.6 mg/dL (7-18); MAGNESIUM 2.3 mg/dL (1.8-2.4)
[2021-09-26 08:02] LABS: CREATININE 0.7 mg/dL (0.55-1.3)
[2021-09-26 08:04] LABS: BILIRUBIN,TOTAL 0.4 mg/dL (0.2-1); TOT PROT 6.3 g/dl (6.4-8.2)
[2021-09-26] MEDS: ENOXAPARIN NA (PORCINE) 40 MG/0.4 ML DISP.SYRIN SQ SCH (09:30)
[2021-09-26] MEDS: FLUoxetine HCL 10 MG CAPSULE PO SCH (09:31)
[2021-09-26] MEDS: PRAMIPEXOLE DIHYDROCHLORIDE 0.25 MG TABLET PO SCH ×2 (09:31→22:41)
[2021-09-26] MEDS: BUDESONIDE/FORMETEROL FUMARATE 160/4.5 mcg INHALER IH SCH ×2 (09:32→22:39)
[2021-09-26] MEDS: PANTOPRAZOLE 40 MG TABLET PO SCH (09:32)
[2021-09-26] MEDS: TOPIRAMATE 25 MG TABLET PO SCH ×2 (09:33→22:42)
[2021-09-26] MEDS ORDERED: IRON SUCROSE INJECTION 300 MG in SODIUM CHLORIDE 235 ML IVPB ONE (13:00)
[2021-09-26] MEDS: MONTELUKAST NA 10 MG TABLET PO SCH (22:41)
[2021-09-27 08:23] LABS: BASO % 0.7 % (0-2.0); EOS % 1.5 % (0-4.5); HEMOGLOBIN 13.8 GM/dL (10.7-15.3); MCH 30.4 pg (25.7-33.7); MCHC 33.5 g/dl (32.0-36.0); MEAN CELL VOLUME 90.6 fl (80-96); MONO % 7.3 % (3.8-10.2); NEUT % 58.5 % (42.8-82.8); PLATELET COUNT 280 10^3/uL (134-434); RBC 4.53 M/mm3 (3.60-5.2); RDW 14.4 % (11.6-15.6); WHITE BLOOD COUNT 7.8 K/mm3 (4.0-10.0)
[2021-09-27 08:42] LABS: ALBUMIN 3.2 g/dl (3.4-5.0); CALCIUM 9.1 mg/dL (8.5-10.1)
[2021-09-27 08:43] LABS: BLOOD UREA NITROGEN 13.7 mg/dL (7-18); MAGNESIUM 2.4 mg/dL (1.8-2.4)
[2021-09-27 08:45] LABS: CREATININE 0.7 mg/dL (0.55-1.3); PHOSPHOROUS 3.7 mg/dL (2.5-4.9)
[2021-09-27 08:46] LABS: TOT PROT 6.3 g/dl (6.4-8.2)
[2021-09-27 08:47] LABS: BILIRUBIN,TOTAL 0.2 mg/dL (0.2-1)
[2021-09-27] MEDS: PRAMIPEXOLE DIHYDROCHLORIDE 0.25 MG TABLET PO SCH ×2 (09:37→21:30)
[2021-09-27] MEDS: PANTOPRAZOLE 40 MG TABLET PO SCH (09:37)
[2021-09-27] MEDS: FLUoxetine HCL 10 MG CAPSULE PO SCH (09:37)
[2021-09-27] MEDS: BUDESONIDE/FORMETEROL FUMARATE 160/4.5 mcg INHALER IH SCH ×2 (09:38→21:30)
[2021-09-27] MEDS: TOPIRAMATE 25 MG TABLET PO SCH ×3 (09:38→23:08)
[2021-09-27] MEDS: ENOXAPARIN NA (PORCINE) 40 MG/0.4 ML DISP.SYRIN SQ SCH (09:38)
[2021-09-27] MEDS: ACETAMINOPHEN 1000 MG/100 ML BAG IVPB PRN (17:21)
[2021-09-27] MEDS: MONTELUKAST NA 10 MG TABLET PO SCH (21:30)
[2021-09-28] MEDS: PANTOPRAZOLE 40 MG TABLET PO SCH (09:37)
[2021-09-28] MEDS: PRAMIPEXOLE DIHYDROCHLORIDE 0.25 MG TABLET PO SCH (09:37)
[2021-09-28] MEDS: FLUoxetine HCL 10 MG CAPSULE PO SCH (09:38)
[2021-09-28] MEDS: TOPIRAMATE 25 MG TABLET PO SCH (09:40)
[2021-09-28] MEDS: BUDESONIDE/FORMETEROL FUMARATE 160/4.5 mcg INHALER IH SCH (09:41)
[2021-09-28] MEDS: ENOXAPARIN NA (PORCINE) 40 MG/0.4 ML DISP.SYRIN SQ SCH (09:41)
[2021-09-28] MEDS: ACETAMINOPHEN 1000 MG/100 ML BAG IVPB PRN (12:01)
[2021-09-28 15:02] VITALS: BP 132/80; PULSE 76; TEMP 98.4
== END 2021-09-28 15:52 | disposition home health service (06) | DRG 58 ==
LOC: JER 17:33 → JERBED 21:10 → J4W 09-23 03:46
PROVIDERS: ADMIT Hospitalist; ATTEND Internal Medicine
DX: G25.81 Restless legs syndrome (principal); J45.909 Unspecified asthma, uncomplicated; F41.8 Other specified anxiety disorders; I10 Essential (primary) hypertension; E78.5 Hyperlipidemia, unspecified; R47.81 Slurred speech; G43.909 Migraine, unspecified, not intractable, without status migrainosus; G51.0 Bell's palsy; E04.1 Nontoxic single thyroid nodule
CPT/HCPCS: 36415; 70450-TC; 70496-TC; 70498-TC; 70551-TC; 71260-TC; 80048; 80053; 80061; 80307; 81003; 82550; 82728; 82962; 83036; 83540; 83550; 83735; 84100; 84439; 84443; 84484; 85025; 85610; 85730; 86618; 86850; 86900; 86901; 93005; 93010; 97116-GP; 97162-GP; 99285-25; C9803-CS; J1756; Q9967; U0003; U0005

== ENCOUNTER 2021-12-10 19:41 | Inpatient (IN) | payer OTHER ==
[2021-12-10 19:48] VITALS: BMI 34.0
[2021-12-10] MEDS ORDERED: PROCHLORPERAZINE INJECTION 10 MG/2 ML VIAL IVPB ONE (20:27)
[2021-12-10] MEDS ORDERED: SODIUM CHLORIDE 0.9% 500 ML INFUS.BAG IV ONE (20:27)
[2021-12-10] MEDS ORDERED: ACETAMINOPHEN 1000 MG/100 ML BAG IVPB ONE (20:41)
[2021-12-10 21:24] LABS: BASO % 0.3 % (0-2.0); EOS % 1.2 % (0-4.5); HEMOGLOBIN 15.4 GM/dL (10.7-15.3); LYMPH % 24.9 % (8-40); MCH 29.9 pg (25.7-33.7); MCHC 32.7 g/dl (32.0-36.0); MEAN CELL VOLUME 91.3 fl (80-96); MEAN PLT VOLUME 8.8 fl (7.5-11.1); MONO % 6.9 % (3.8-10.2); NEUT % 66.7 % (42.8-82.8); PLATELET COUNT 245 10^3/uL (134-434); RBC 5.14 M/mm3 (3.60-5.2); RDW 14.3 % (11.6-15.6); WHITE BLOOD COUNT 7.8 K/mm3 (4.0-10.0)
[2021-12-10 21:31] LABS: INR 0.97 (0.83-1.09); PROTHROMBIN TIME (PATIENT) 11.1 SEC (9.7-13.0)
[2021-12-10 21:33] LABS: ACTIVATED PTT 33.9 SECONDS (25.2-36.5)
[2021-12-10] MEDS ORDERED: PROCHLORPERAZINE INJECTION 10 MG/2 ML VIAL ONE (21:43)
[2021-12-10] MEDS ORDERED: ACETAMINOPHEN INJECTION 100 ML IVPB ONE ×2 (21:43→21:49)
[2021-12-10 21:45] LABS: BLOOD UREA NITROGEN 13.3 mg/dL (7-18); CALCIUM 9.1 mg/dL (8.5-10.1)
[2021-12-10 21:46] LABS: ALBUMIN 3.9 g/dl (3.4-5.0)
[2021-12-10 21:48] LABS: BILIRUBIN,TOTAL 0.4 mg/dL (0.2-1); CREATININE 0.7 mg/dL (0.55-1.3); TOT PROT 7.6 g/dl (6.4-8.2)
[2021-12-10] MEDS ORDERED: METOCLOPRAMIDE HCL INJECTION 10 MG/2 ML VIAL IVPUSH ONE (22:11)
[2021-12-10] MEDS ORDERED: METOCLOPRAMIDE HCL INJECTION 10 MG/2 ML VIAL ONE (22:27)
[2021-12-10 23:16] LABS: PH,URINE 5.5 (5.0-8.0); URINE APPEARANCE CLEAR; URINE BILIRUBIN NEGATIVE (NEGATIVE); URINE COLOR YELLOW; URINE GLUCOSE (UA) NEGATIVE (NEGATIVE); URINE KETONE NEGATIVE (NEGATIVE); URINE LEUK ESTERASE NEGATIVE (NEGATIVE); URINE NITRITE NEGATIVE (NEGATIVE); URINE PROTEIN NEGATIVE (NEGATIVE); URINE UROBILINOGEN 0.2 mg/dL (0.2-1.0)
[2021-12-11 08:07] LABS: CALCIUM 8.4 mg/dL (8.5-10.1)
[2021-12-11 08:08] LABS: BLOOD UREA NITROGEN 8.9 mg/dL (7-18); MAGNESIUM 2.2 mg/dL (1.8-2.4)
[2021-12-11 08:10] LABS: PHOSPHOROUS 3.4 mg/dL (2.5-4.9)
[2021-12-11 08:11] LABS: CREATININE 0.5 mg/dL (0.55-1.3)
[2021-12-11 08:12] LABS: BILIRUBIN,TOTAL 0.5 mg/dL (0.2-1); TOT PROT 5.8 g/dl (6.4-8.2)
[2021-12-11 08:17] LABS: BASO % 0.5 % (0-2.0); EOS % 1.7 % (0-4.5); HEMATOCRIT 39.6 % (32.4-45.2); HEMOGLOBIN 13.2 GM/dL (10.7-15.3); LYMPH % 33.4 % (8-40); MCH 30.4 pg (25.7-33.7); MCHC 33.3 g/dl (32.0-36.0); MEAN CELL VOLUME 91.1 fl (80-96); MONO % 8.3 % (3.8-10.2); NEUT % 56.1 % (42.8-82.8); PLATELET COUNT 212 10^3/uL (134-434); RBC 4.35 M/mm3 (3.60-5.2); RDW 14.4 % (11.6-15.6); WHITE BLOOD COUNT 6.8 K/mm3 (4.0-10.0)
[2021-12-11 08:23] LABS: ALBUMIN 2.8 g/dl (3.4-5.0)
[2021-12-11] MEDS: ENOXAPARIN NA (PORCINE) 40 MG/0.4 ML DISP.SYRIN SQ SCH (10:50)
[2021-12-11] MEDS: ASPIRIN 81 MG CHEWABLE TABLETS PO SCH (10:50)
[2021-12-11] MEDS ORDERED: ASPIRIN 81 MG CHEWABLE TABLETS ONE (10:51)
[2021-12-11] MEDS ORDERED: ENOXAPARIN NA (PORCINE) 40 MG/0.4 ML DISP.SYRIN SQ ONE (10:52)
[2021-12-11] MEDS ORDERED: ALBUTEROL SO4 HFA INHALER IH PRN (13:35)
[2021-12-11] MEDS ORDERED: diphenhydrAMINE HCL 25 MG CAPSULE (FP) PO ONE (13:37)
[2021-12-11] MEDS ORDERED: SODIUM CHLORIDE 1,000 ML IV SCH (13:45)
[2021-12-11] MEDS ORDERED: ACETAMINOPHEN/CAFFEINE/BUTALBITAL 1 TAB PO PRN (13:59)
[2021-12-11] MEDS: GABAPENTIN 300 MG CAPSULE PO SCH (21:36)
[2021-12-11] MEDS: BUDESONIDE/FORMETEROL FUMARATE 160/4.5 mcg INHALER IH SCH (21:36)
[2021-12-11] MEDS: TOPIRAMATE 25 MG TABLET PO SCH (21:37)
[2021-12-11] MEDS ORDERED: NABUMETONE 500 MG TABLET PO SCH (22:00)
[2021-12-11] MEDS ORDERED: CYCLOBENZAPRINE HCL 10 MG TABLET (FP) PO SCH (22:00)
[2021-12-11] MEDS ORDERED: ATORVASTATIN CA 40 MG TABLET (FP) PO SCH (22:00)
[2021-12-11] MEDS ORDERED: MONTELUKAST NA 10 MG TABLET PO SCH (22:00)
[2021-12-12 08:10] LABS: BASO % 0.3 % (0-2.0); EOS % 1.8 % (0-4.5); HEMATOCRIT 39.9 % (32.4-45.2); HEMOGLOBIN 13.1 GM/dL (10.7-15.3); LYMPH % 40.5 % (8-40); MCH 30.4 pg (25.7-33.7); MEAN CELL VOLUME 92.2 fl (80-96); MEAN PLT VOLUME 9.1 fl (7.5-11.1); MONO % 7.5 % (3.8-10.2); NEUT % 49.9 % (42.8-82.8); PLATELET COUNT 225 10^3/uL (134-434); RBC 4.32 M/mm3 (3.60-5.2); RDW 14.4 % (11.6-15.6); WHITE BLOOD COUNT 5.2 K/mm3 (4.0-10.0)
[2021-12-12 08:11] LABS: CALCIUM 8.1 mg/dL (8.5-10.1)
[2021-12-12 08:12] LABS: ALBUMIN 2.7 g/dl (3.4-5.0); BLOOD UREA NITROGEN 10.3 mg/dL (7-18)
[2021-12-12 08:15] LABS: CREATININE 0.5 mg/dL (0.55-1.3)
[2021-12-12 08:16] LABS: BILIRUBIN,TOTAL 0.6 mg/dL (0.2-1); TOT PROT 5.9 g/dl (6.4-8.2)
[2021-12-12 08:44] VITALS: BP 127/86; PULSE 77; RESP 15; TEMP 98.8
[2021-12-12] MEDS: ENOXAPARIN NA (PORCINE) 40 MG/0.4 ML DISP.SYRIN SQ SCH (09:53)
[2021-12-12] MEDS: GABAPENTIN 300 MG CAPSULE PO SCH (09:53)
[2021-12-12] MEDS: ASPIRIN 81 MG CHEWABLE TABLETS PO SCH (09:53)
[2021-12-12] MEDS: TOPIRAMATE 25 MG TABLET PO SCH (09:54)
[2021-12-12] MEDS: BUDESONIDE/FORMETEROL FUMARATE 160/4.5 mcg INHALER IH SCH (09:57)
[2021-12-12] MEDS ORDERED: PANTOPRAZOLE 40 MG TABLET PO SCH (10:00)
[2021-12-12] MEDS ORDERED: diphenhydrAMINE HCL 25 MG CAPSULE (FP) PO SCH (22:00)
== END 2021-12-12 11:46 | disposition home or self-care (01) | DRG 54 ==
LOC: JER 19:41 → JERBED 21:03 → J4W 12-11 12:04
PROVIDERS: ADMIT Internal Medicine; ATTEND Internal Medicine
DX: G43.909 Migraine, unspecified, not intractable, without status migrainosus (principal); J45.909 Unspecified asthma, uncomplicated; Z88.0 Allergy status to penicillin; R20.2 Paresthesia of skin; F41.9 Anxiety disorder, unspecified; R47.01 Aphasia; M54.2 Cervicalgia; R22.1 Localized swelling, mass and lump, neck; E78.5 Hyperlipidemia, unspecified; E04.1 Nontoxic single thyroid nodule; M62.81 Muscle weakness (generalized); F32.9 Major depressive disorder, single episode, unspecified; R07.89 Other chest pain
CPT/HCPCS: 0241U-QW; 36415; 70450-TC; 70496-TC; 70498-TC; 70551-TC; 71045-TC-FY; 76536-TC; 80053; 80061; 81003; 83036; 83735; 84100; 84443; 84484; 85025; 85610; 85730; 86850; 86900; 86901; 87086; 93005; 93010; 99285-25; Q9967

== ENCOUNTER 2022-08-02 12:24 | Emergency (ER) | payer OTHER ==
[2022-08-02 12:53] VITALS: TEMP 98.1; BMI 30.8
[2022-08-02] MEDS ORDERED: ACETAMINOPHEN 500 MG TABLET (FP) PO ONE (12:55)
[2022-08-02] MEDS ORDERED: ASPIRIN 81 MG CHEWABLE TABLETS PO ONE (12:55)
[2022-08-02] MEDS ORDERED: ACETAMINOPHEN 325 MG TABLET (FP) ONE (12:59)
[2022-08-02 13:11] LABS: BASO % 0.7 % (0-2.0); HEMOGLOBIN 13.6 GM/dL (10.7-15.3); LYMPH % 35.8 % (8-40); MCH 29.4 pg (25.7-33.7); MCHC 33.1 g/dl (32.0-36.0); MEAN CELL VOLUME 88.8 fl (80-96); MEAN PLT VOLUME 9.1 fl (7.5-11.1); MONO % 8.4 % (3.8-10.2); NEUT % 54.1 % (42.8-82.8); PLATELET COUNT 222 10^3/uL (134-434); RBC 4.61 M/mm3 (3.60-5.2); RDW 14.4 % (11.6-15.6); WHITE BLOOD COUNT 6.3 K/mm3 (4.0-10.0)
[2022-08-02 13:19] LABS: INR 1.03 (0.83-1.09)
[2022-08-02 13:35] LABS: CALCIUM 9.4 mg/dL (8.5-10.1)
[2022-08-02 13:36] LABS: ALBUMIN 3.6 g/dl (3.4-5.0); BLOOD UREA NITROGEN 7.3 mg/dL (7-18)
[2022-08-02 13:39] LABS: CREATININE 0.6 mg/dL (0.55-1.3)
[2022-08-02 13:41] LABS: BILIRUBIN,TOTAL 0.3 mg/dL (0.2-1); TOT PROT 6.9 g/dl (6.4-8.2)
[2022-08-02 16:29] VITALS: BP 142/91; PULSE 63; RESP 16
== END 2022-08-02 17:02 | disposition home or self-care (01) ==
LOC: JER 12:24
DX: R07.89 Other chest pain (principal); R51.9 Headache, unspecified; R00.1 Bradycardia, unspecified
CPT/HCPCS: 36415; 71045-TC-FY; 80053; 82550; 83880; 84484; 85025; 85610; 93005; 93010; 99285-25

== ENCOUNTER 2022-10-24 15:57 | Emergency (ER) | payer OTHER ==
[2022-10-24 16:09] VITALS: RESP 17; TEMP 98.2; BMI 27.3
[2022-10-24] MEDS ORDERED: SODIUM CHLORIDE 0.9% 500 ML INFUS.BAG IV ONE (16:48)
[2022-10-24] MEDS ORDERED: METOCLOPRAMIDE HCL INJECTION 10 MG/2 ML VIAL IVPUSH ONE (16:48)
[2022-10-24] MEDS ORDERED: ACETAMINOPHEN 500 MG TABLET (FP) PO ONE (16:48)
[2022-10-24] MEDS ORDERED: METOCLOPRAMIDE HCL INJECTION 10 MG/2 ML VIAL ONE (16:53)
[2022-10-24] MEDS ORDERED: ACETAMINOPHEN 500 MG TABLET (FP) ONE (16:58)
[2022-10-24 17:36] VITALS: BP 139/79; PULSE 66
[2022-10-24 18:06] LABS: BASO % 0.7 % (0-2.0); EOS % 0.8 % (0-4.5); HEMATOCRIT 40.9 % (32.4-45.2); LYMPH % 25.1 % (8-40); MCH 28.9 pg (25.7-33.7); MCHC 31.8 g/dl (32.0-36.0); MEAN CELL VOLUME 90.7 fl (80-96); MEAN PLT VOLUME 10.3 fl (7.5-11.1); MONO % 8.3 % (3.8-10.2); NEUT % 65.1 % (42.8-82.8); PLATELET COUNT 211 10^3/uL (134-434); RBC 4.51 M/mm3 (3.60-5.2); RDW 13.9 % (11.6-15.6); WHITE BLOOD COUNT 6.8 K/mm3 (4.0-10.0)
[2022-10-24 18:41] LABS: POTASSIUM 3.9 mmol/L (3.5-5.1)
[2022-10-24 18:43] LABS: CALCIUM 8.8 mg/dL (8.5-10.1)
[2022-10-24 18:44] LABS: ALBUMIN 3.6 g/dl (3.4-5.0); BLOOD UREA NITROGEN 14.6 mg/dL (7-18)
[2022-10-24 18:47] LABS: CREATININE 0.7 mg/dL (0.55-1.3)
[2022-10-24 18:48] LABS: BILIRUBIN,TOTAL 0.2 mg/dL (0.2-1); TOT PROT 6.7 g/dl (6.4-8.2)
== END 2022-10-24 19:06 | disposition home or self-care (01) ==
LOC: JER 15:57
PROC: 3E033GC Introduction of Other Therapeutic Substance into Peripheral Vein, Percutaneous Approach (ICD-10-PCS; principal; 2022-10-24)
DX: R51.9 Headache, unspecified (principal); R07.9 Chest pain, unspecified; G43.919 Migraine, unspecified, intractable, without status migrainosus
CPT/HCPCS: 36415; 80053; 82550; 82962; 84484; 85025; 93005; 93010; 99284-25

== ENCOUNTER 2023-04-06 20:01 | Inpatient (IN) | payer OTHER ==
[2023-04-06] MEDS ORDERED: TENECTEplase 50 MG VIAL IVPUSH ONE (21:11)
[2023-04-06] MEDS ORDERED: ALBUTEROL SO4 2.5/IPRATROPIUM 0.5 INH SOL 3 ML VIAL.NEB. NEB ONE ×2 (21:12→21:44)
[2023-04-06] MEDS: TENECTEplase 50 MG VIAL IVPUSH ONE (21:25)
[2023-04-06 21:47] LABS: BASO % 0.4 % (0-2.0); EOS % 4.1 % (0-4.5); HEMATOCRIT 41.3 % (32.4-45.2); HEMOGLOBIN 13.5 GM/dL (10.7-15.3); LYMPH % 37.3 % (8-40); MCH 30.1 pg (25.7-33.7); MCHC 32.6 g/dl (32.0-36.0); MEAN CELL VOLUME 92.3 fl (80-96); MEAN PLT VOLUME 8.9 fl (7.5-11.1); MONO % 9.6 % (3.8-10.2); NEUT % 48.6 % (42.8-82.8); PLATELET COUNT 237 10^3/uL (134-434); RBC 4.47 M/mm3 (3.60-5.2); RDW 14.8 % (11.6-15.6); WHITE BLOOD COUNT 8.1 K/mm3 (4.0-10.0)
[2023-04-06] MEDS ORDERED: methylPREDNISolone NA SUCC 125 MG/2 ML VIAL ONE (21:51)
[2023-04-06 21:54] LABS: INR 0.97 (0.83-1.09); PROTHROMBIN TIME (PATIENT) 11.2 SEC (9.7-13.0)
[2023-04-06 21:56] LABS: ACTIVATED PTT 32.2 SECONDS (25.2-36.5)
[2023-04-06] MEDS: methylPREDNISolone NA SUCC 125 MG/2 ML VIAL IVPUSH ONE (21:57)
[2023-04-06] MEDS: ALBUTEROL SO4 2.5/IPRATROPIUM 0.5 INH SOL 3 ML VIAL.NEB. NEB SCH (21:59)
[2023-04-06] MEDS ORDERED: LABETALOL HCL 5 MG/1 ML (100MG/20 ML VIAL) IVPUSH PRN (22:03)
[2023-04-06] MEDS ORDERED: ALBUTEROL SO4 0.083% IH SOL 2.5 MG/3 ML VIAL.NEB. NEB PRN (22:10)
[2023-04-06 22:26] LABS: POTASSIUM 3.3 mmol/L (3.5-5.1)
[2023-04-06 22:28] LABS: CALCIUM 8.6 mg/dL (8.5-10.1)
[2023-04-06 22:30] LABS: ALBUMIN 3.5 g/dl (3.4-5.0)
[2023-04-06 22:32] LABS: CREATININE 0.6 mg/dL (0.55-1.3)
[2023-04-06 22:34] LABS: TOT PROT 6.6 g/dl (6.4-8.2)
[2023-04-06 22:41] LABS: BILIRUBIN,TOTAL 0.2 mg/dL (0.2-1)
[2023-04-06] MEDS: SODIUM CHLORIDE 1,000 ML IV SCH (23:00)
[2023-04-07] MEDS: ACETAMINOPHEN 1000 MG/100 ML BAG IVPB PRN (00:08)
[2023-04-07] MEDS: DEXAMETHASONE SOD PHOSPHATE 10 MG/1 ML VIAL IVPUSH ONE (00:15)
[2023-04-07 00:57] VITALS: BMI 24.3
[2023-04-07] MEDS: ALBUTEROL SO4 2.5/IPRATROPIUM 0.5 INH SOL 3 ML VIAL.NEB. NEB SCH (07:40)
[2023-04-07] MEDS: KCL 10 MEQ IVPB 10 MEQ/100 ML INFUS.BAG IVPB SCH (08:52)
[2023-04-07] MEDS: methylPREDNISolone NA SUCC 40 MG/1 ML VIAL IVPUSH SCH (09:12)
[2023-04-07] MEDS: MUPIROCIN 2% TOPICAL OINTMENT FOR DECOLONIZATION NS SCH (09:12)
[2023-04-07 10:49] LABS: PH,URINE 6.5 (5.0-8.0); URINE APPEARANCE CLEAR; URINE BILIRUBIN NEGATIVE (NEGATIVE); URINE COLOR YELLOW; URINE GLUCOSE (UA) NEGATIVE (NEGATIVE); URINE KETONE NEGATIVE (NEGATIVE); URINE LEUK ESTERASE NEGATIVE (NEGATIVE); URINE NITRITE NEGATIVE (NEGATIVE); URINE PROTEIN NEGATIVE (NEGATIVE)
[2023-04-07] MEDS: METOCLOPRAMIDE HCL INJECTION 10 MG/2 ML VIAL IVPUSH ONE (15:02)
[2023-04-07] MEDS: PROCHLORPERAZINE INJECTION 10 MG/2 ML VIAL IVPB ONE (17:33)
[2023-04-07] MEDS: CHLORHEXIDINE GLUCONATE 4% CLEANSER FOR DECOLONIZATION TP SCH (21:06)
[2023-04-08 06:25] VITALS: TEMP 97.7
[2023-04-08 07:01] LABS: MCHC 33.4 g/dl (32.0-36.0); MEAN CELL VOLUME 92.8 fl (80-96); MEAN PLT VOLUME 9.3 fl (7.5-11.1); PLATELET COUNT 220 10^3/uL (134-434); RBC 3.88 M/mm3 (3.60-5.2); RDW 14.7 % (11.6-15.6); WHITE BLOOD COUNT 14.7 K/mm3 (4.0-10.0)
[2023-04-08 07:23] LABS: POTASSIUM 3.9 mmol/L (3.5-5.1)
[2023-04-08 07:32] LABS: BLOOD UREA NITROGEN 11.4 mg/dL (7-18); CALCIUM 8.8 mg/dL (8.5-10.1); MAGNESIUM 2.1 mg/dL (1.8-2.4)
[2023-04-08 07:34] LABS: CREATININE 0.5 mg/dL (0.55-1.3); PHOSPHOROUS 3.6 mg/dL (2.5-4.9)
[2023-04-08 07:36] LABS: BILIRUBIN,TOTAL 0.1 mg/dL (0.2-1)
[2023-04-08 09:04] LABS: ANISOCYTOSIS 1+
[2023-04-08] MEDS ORDERED: BUDESONIDE/FORMETEROL FUMARATE 160/4.5 mcg INHALER IH SCH (10:00)
[2023-04-08] MEDS ORDERED: NORTRIPTYLINE HCL 25 MG CAPSULE PO SCH (10:00)
[2023-04-08] MEDS: methylPREDNISolone NA SUCC 40 MG/1 ML VIAL IVPUSH SCH (10:09)
[2023-04-08] MEDS: ASPIRIN 325 MG ENTERIC COATED TABLET (FP) PO SCH (10:09)
[2023-04-08] MEDS: FLUoxetine HCL 20 MG CAPSULE PO SCH (10:09)
[2023-04-08 12:10] VITALS: BP 119/78; PULSE 91; RESP 16
== END 2023-04-08 13:35 | disposition left against medical advice (07) | DRG 45 ==
LOC: JER 20:01 → JERBED 21:38 → JICU 22:51
PROVIDERS: ADMIT Internal Medicine Pulmonary Disease; ATTEND Internal Medicine Pulmonary Disease
DX: I63.9 Cerebral infarction, unspecified (principal); G25.81 Restless legs syndrome; M62.81 Muscle weakness (generalized); F32.A Depression, unspecified; G43.909 Migraine, unspecified, not intractable, without status migrainosus; I69.354 Hemiplegia and hemiparesis following cerebral infarction affecting left non-dominant side; E87.6 Hypokalemia; R29.716 NIHSS score 16; I69.392 Facial weakness following cerebral infarction; J45.909 Unspecified asthma, uncomplicated
CPT/HCPCS: 0241U-QW; 36415; 70450-TC; 70496-TC; 70498-TC; 70551-TC; 80053; 80061; 81003; 82550; 83036; 83735; 84100; 84443; 84484; 85025; 85610; 85730; 86850; 86900; 86901; 93005; 93010; 93306-TC; 94640; 99291; J0131; J3101

== ENCOUNTER 2023-08-01 15:30 | Observation (INO) | payer OTHER ==
[2023-08-01 17:45] LABS: VENOUS BASE EXCESS 0.2 mmol/L (-2-2); VENOUS O2 SATURATION 52.1 % (70-80); VENOUS PH 7.356 (7.310-7.410)
[2023-08-01 17:51] LABS: BASO % 0.7 % (0-2.0); EOS % 1.2 % (0-4.5); HEMOGLOBIN 13.5 GM/dL (10.7-15.3); LYMPH % 42.9 % (8-40); MCH 29.9 pg (25.7-33.7); MCHC 32.9 g/dl (32.0-36.0); MEAN CELL VOLUME 90.8 fl (80-96); MEAN PLT VOLUME 9.2 fl (7.5-11.1); MONO % 6.3 % (3.8-10.2); NEUT % 48.9 % (42.8-82.8); PLATELET COUNT 237 10^3/uL (134-434); RBC 4.52 M/mm3 (3.60-5.2); WHITE BLOOD COUNT 5.3 K/mm3 (4.0-10.0)
[2023-08-01 18:05] LABS: POTASSIUM 4.1 mmol/L (3.5-5.1)
[2023-08-01 18:06] LABS: INR 0.93 (0.83-1.09); PROTHROMBIN TIME (PATIENT) 10.8 SEC (9.7-13.0)
[2023-08-01 18:07] LABS: CALCIUM 9.1 mg/dL (8.5-10.1)
[2023-08-01 18:08] LABS: ALBUMIN 3.5 g/dl (3.4-5.0); BLOOD UREA NITROGEN 8.8 mg/dL (7-18)
[2023-08-01 18:09] LABS: ACTIVATED PTT 30.7 SECONDS (25.2-36.5)
[2023-08-01 18:11] LABS: CREATININE 0.6 mg/dL (0.55-1.3)
[2023-08-01 18:12] LABS: BILIRUBIN,TOTAL 0.2 mg/dL (0.2-1); TOT PROT 6.8 g/dl (6.4-8.2)
[2023-08-01] MEDS ORDERED: ASPIRIN 300 MG SUPP.RECT RC ONE (18:56)
[2023-08-01] MEDS: ASPIRIN 300 MG SUPP.RECT RC ONE (19:00)
[2023-08-01] MEDS ORDERED: LORATADINE 10 MG TABLET PO PRN (23:33)
[2023-08-01] MEDS ORDERED: ALBUTEROL SO4 HFA INHALER IH PRN (23:33)
[2023-08-02 01:17] VITALS: BMI 25.6
[2023-08-02] MEDS: ACETAMINOPHEN/CAFFEINE/BUTALBITAL 1 TAB PO PRN (06:47)
[2023-08-02 07:43] LABS: BASO % 0.7 % (0-2.0); EOS % 1.8 % (0-4.5); HEMATOCRIT 40.7 % (32.4-45.2); HEMOGLOBIN 13.3 GM/dL (10.7-15.3); LYMPH % 42.3 % (8-40); MCH 29.8 pg (25.7-33.7); MCHC 32.6 g/dl (32.0-36.0); MEAN CELL VOLUME 91.2 fl (80-96); MEAN PLT VOLUME 9.1 fl (7.5-11.1); MONO % 9.1 % (3.8-10.2); NEUT % 46.1 % (42.8-82.8); PLATELET COUNT 228 10^3/uL (134-434); RBC 4.46 M/mm3 (3.60-5.2); RDW 14.2 % (11.6-15.6); WHITE BLOOD COUNT 4.8 K/mm3 (4.0-10.0)
[2023-08-02 08:32] LABS: POTASSIUM 3.7 mmol/L (3.5-5.1)
[2023-08-02 08:38] LABS: ALBUMIN 3.3 g/dl (3.4-5.0); BLOOD UREA NITROGEN 11.4 mg/dL (7-18); MAGNESIUM 2.5 mg/dL (1.8-2.4)
[2023-08-02 08:41] LABS: CREATININE 0.6 mg/dL (0.55-1.3); PHOSPHOROUS 3.9 mg/dL (2.5-4.9)
[2023-08-02 08:43] LABS: BILIRUBIN,TOTAL 0.5 mg/dL (0.2-1); TOT PROT 6.4 g/dl (6.4-8.2)
[2023-08-02] MEDS ORDERED: OLANZapine 5 MG TABLET PO SCH (10:00)
[2023-08-02] MEDS: ASPIRIN 81 MG CHEWABLE TABLETS PO SCH (10:31)
[2023-08-02] MEDS: FLUoxetine HCL 20 MG CAPSULE PO SCH (10:31)
[2023-08-02] MEDS: TOPIRAMATE 25 MG TABLET PO SCH (10:31)
[2023-08-02] MEDS: NORTRIPTYLINE HCL 25 MG CAPSULE PO SCH (11:12)
[2023-08-02] MEDS: PRAMIPEXOLE DIHYDROCHLORIDE 0.25 MG TABLET PO SCH (11:12)
[2023-08-02] MEDS: BUDESONIDE/FORMETEROL FUMARATE 160/4.5 mcg INHALER IH SCH (11:12)
[2023-08-02] MEDS: CLOPIDOGREL BISULFATE 75 MG TABLET (FP) PO SCH (16:23)
[2023-08-02] MEDS: ATORVASTATIN CA 80 MG TABLET (FP) PO SCH (21:29)
[2023-08-02] MEDS: levETIRAcetam 500 MG TABLET (FP) PO SCH (21:29)
[2023-08-02] MEDS: PREGABALIN 25 MG CAPSULE PO SCH (21:29)
[2023-08-02] MEDS: CYCLOBENZAPRINE HCL 10 MG TABLET (FP) PO SCH (21:29)
[2023-08-02] MEDS: MONTELUKAST NA 10 MG TABLET PO SCH (21:29)
[2023-08-02] MEDS: OLANZapine 5 MG TABLET PO SCH (21:30)
[2023-08-02] MEDS ORDERED: ATORVASTATIN CA 40 MG TABLET (FP) PO SCH (22:00)
[2023-08-03 08:20] LABS: BASO % 0.6 % (0-2.0); EOS % 2.1 % (0-4.5); HEMATOCRIT 42.9 % (32.4-45.2); HEMOGLOBIN 13.9 GM/dL (10.7-15.3); LYMPH % 35.5 % (8-40); MCH 29.7 pg (25.7-33.7); MCHC 32.4 g/dl (32.0-36.0); MEAN CELL VOLUME 91.7 fl (80-96); MEAN PLT VOLUME 9.1 fl (7.5-11.1); MONO % 8.9 % (3.8-10.2); NEUT % 52.9 % (42.8-82.8); PLATELET COUNT 231 10^3/uL (134-434); RBC 4.68 M/mm3 (3.60-5.2); RDW 14.1 % (11.6-15.6); WHITE BLOOD COUNT 5.9 K/mm3 (4.0-10.0)
[2023-08-03 08:42] LABS: POTASSIUM 3.8 mmol/L (3.5-5.1)
[2023-08-03 08:54] VITALS: RESP 18
[2023-08-03 09:02] LABS: TOT PROT 6.4 g/dl (6.4-8.2)
[2023-08-03 09:03] LABS: BLOOD UREA NITROGEN 14.6 mg/dL (7-18)
[2023-08-03 09:04] LABS: ALBUMIN 3.2 g/dl (3.4-5.0); BILIRUBIN,TOTAL 0.5 mg/dL (0.2-1); CREATININE 0.7 mg/dL (0.55-1.3); MAGNESIUM 2.4 mg/dL (1.8-2.4); PHOSPHOROUS 3.9 mg/dL (2.5-4.9)
[2023-08-03 09:05] LABS: CALCIUM 9.2 mg/dL (8.5-10.1)
[2023-08-03 14:53] VITALS: BP 92/63; PULSE 72; TEMP 97.8
== END 2023-08-03 16:28 | disposition home or self-care (01) ==
LOC: JER 15:30 → JERBED 19:49 → J4S 23:15
PROVIDERS: ADMIT Internal Medicine; ATTEND Internal Medicine
DX: G43.909 Migraine, unspecified, not intractable, without status migrainosus (principal); F41.9 Anxiety disorder, unspecified; J45.909 Unspecified asthma, uncomplicated; Z91.041 Radiographic dye allergy status; Z88.0 Allergy status to penicillin; Z91.013 Allergy to seafood
CPT/HCPCS: 36415; 70450-TC; 70496-TC; 70498-TC; 70551-TC; 71045-TC-FY; 73030-TC-LT-FY; 80053; 80061; 82803; 82962; 83036; 83605; 83735; 84100; 84484; 85025; 85610; 85730; 86780; 86850; 86900; 86901; 87040; 93005; 93010; 93880-TC; 97116-GP; 97161-GP; 99285-25; G0378